=== PATIENT | male | born 1940 | race Caucasian/White ===

== ENCOUNTER 2017-05-24 08:27 | Inpatient (IN) | payer MEDICARE ==
[~2017-05-24] VITALS: Ht 177.8 cm; Wt 81.2 kg
--- NOTE | ~2017-05-24 | PN ---
PATIENT:TREY MENDEZ MEDICAL RECORD: [id number] LOCATION:[facility] ADMISSION DATE: 05/24/17 PROGRESS NOTE DATE OF SERVICE: 06/07/2017 SUBJECTIVE: No new complaint. OBJECTIVE: The patient's discharge has been delayed yet again regarding determination about eligibility for Medicaid. On exam, the patient's mood is euthymic, affect is somewhat expansive. Speech is slightly pressured and tangential. Content of thought is negative for overt psychosis. Sensorium unchanged. ASSESSMENT: No change in diagnosis. PLAN: 1. Continue current treatment plan. 2. Await determination regarding Medicaid. TRANSINT:[id number] Voice Confirmation ID: [id number] DOCUMENT ID: [id number] KIMBERLY GURROLA III, MD at 1142 CC: [id number] DICTATION DATE: 06/07/17 1217 DIP PAINTER: 06/07/17 1226 ADM IN [place] [id number] [place] [address]
--- NOTE | ~2017-05-24 | PN ---
PATIENT:TREY MENDEZ MEDICAL RECORD: [id number] LOCATION:[facility] [place] ADMISSION DATE: 05/24/17 PROGRESS NOTE DATE OF SERVICE: 06/04/2017 SUBJECTIVE: No new complaint. OBJECTIVE: The family has made arrangements for the patient to be transferred to a [place] care facility at the time of discharge. The patient is stable, tolerating medications well. On exam, mood is pleasant. Affect still slightly expansive. Speech tends to be somewhat repetitive. Content of thought is unchanged. Sensorium unchanged. ASSESSMENT: No change in diagnosis. PLAN: 1. Continue current medications. 2. Continue supportive therapy. TRANSINT:[id number] Voice Confirmation ID: [id number] DOCUMENT ID: [id number] KIMBERLY GURROLA III, MD at 2034 CC: [id number] DICTATION DATE: 06/04/17 1115 ACADEMIC SUPPORT CENTER DIRECTOR: 06/04/17 1205 ADM IN [address] [place] [address]
--- NOTE | ~2017-05-24 | PN ---
PATIENT:TREY MENDEZ MEDICAL RECORD: [id number] LOCATION:[facility] ADMISSION DATE: 05/24/17 PROGRESS NOTE DATE OF SERVICE: 05/31/2017 SUBJECTIVE: The patient's case was discussed with staff. He has no new complaint. OBJECTIVE: The patient is in good behavioral control with limited insight about his condition. He does tolerate his medicines well. ASSESSMENT: No change in diagnoses. PLAN: Brief supportive and educational interventions were made. The patient's long-term prognosis is guarded. TRANSINT:[id number] Voice Confirmation ID: [id number] DOCUMENT ID: [id number] VANDANA MEYER MD at 1355 CC: [id number] DICTATION DATE: 05/31/17 1347 WINE PASTEURIZER: 05/31/17 2129 ADM IN [place] [id number] [place] [address]
--- NOTE | ~2017-05-24 | PSY ---
PATIENT NAME:TREY MENDEZ MEDICAL RECORD: [id number] : 36 LOCATION:[facility] ADMISSION DATE: 05/24/17 ACCOUNT: [id number] PSYCHIATRIC EVALUATION DATE OF EVALUATION: 05/24/17 IDENTIFYING DATA: A 76-year-old white male admitted at the request of family for evaluation of dementia. HISTORY OF PRESENT ILLNESS: This patient had previously been evaluated by Dr. Patterson who had recommended admission for further evaluation. The patient has been showing evidently increasing signs and symptoms of dementia for some time. According to him, he moved to [place] from [place] in the relatively recent past. Exact dates are not known. The patient states that he began to have trouble when he applied for a permanent hunting and fishing license. He says "they took something and would not give it back." He then indicated that family had for some reason taken away his bank cards and were trying to "run my life." He states that there is nothing wrong with him and he is not sure how or why he came to the hospital. The patient evidently has been in relatively good health. He does not have any specific complaints upon interview. He does exhibit paranoid ideation directed toward other patients, however. He claimed that another patient was trying to make him be quiet and yet another patient was going to steal something from him. Because of worsening dementia and psychotic symptoms, the patient is now admitted. PAST MEDICAL HISTORY: Details not currently known. The patient has been in relatively good health. Initial laboratory values are unremarkable. ALLERGIES: None listed. FAMILY HISTORY: Noncontributory. SOCIAL HISTORY: The patient as mentioned had been living in [place] for a number of years. He states that he moved to [place] because the weather was better. He denies alcohol or substance abuse. He does have family involved in his care. MENTAL STATUS: On interview, the patient is pleasant. He orients well to the examiner, but is clearly confused. He does not know the name of the hospital and realizes that he has been here for a short time, but he does not know the date. Mood is slightly anxious. Affect is somewhat reserved and avoidant. Content of thought is positive for paranoid delusional ideation. Sensorium is mentioned above. Remote, intermediate, and short-term recall, all appear significantly impaired. Concentration is poor. 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 AXIS II: No diagnosis. AXIS III: No diagnosis. AXIS IV: Moderate. AXIS V: 35. PLAN: 1. The patient is admitted for further medical and psychiatric workup. 2. Diet and activities as tolerated. 3. Daily supportive therapy. TRANSINT:[id number] Voice Confirmation ID: [id number] DOCUMENT ID: [id number] ADDENDUM PAST MEDICAL HISTORY: The patient has a past medical history of hypertension, type 2 diabetes, hypothyroidism, hypercholesterolemia. MEDICATION: At the time of admission included baclofen 10 mg b.i.d., TriCor 145 mg daily, Prinivil 20 mg daily, pravastatin 40 mg at bedtime, Neurontin 300 mg t.i.d., Amaryl 2 mg daily, levothyroxine 150 mcg daily, Glucophage 850 mg t.i.d. with meals and Januvia 100 mg at breakfast. Dictation ID [id number] KIMBERLY GURROLA III, MD at 1058 CC: [id number] DICTATION DATE: 05/24/171421 BUCKSHOT SWAGE OPERATOR: 05/24/17 1436 ADM IN [facility] [address] [place] [address]
--- NOTE | ~2017-05-24 | PN ---
PATIENT:TREY MENDEZ MEDICAL RECORD: [id number] LOCATION:[facility] [place] ADMISSION DATE: 05/24/17 PROGRESS NOTE DATE OF SERVICE: 05/29/2017 SUBJECTIVE: No new complaint. OBJECTIVE: Staff report the patient is participating well. We will be getting neuropsychological testing regarding possible guardianship. On exam, mood is pleasant. Affect somewhat expansive. Speech is tangential. Content of thought is negative for overt psychosis. Sensorium is unchanged. ASSESSMENT: No change in diagnosis. PLAN: 1. Continue current medications. 2. Continue supportive therapy. TRANSINT:[id number] Voice Confirmation ID: [id number] DOCUMENT ID: [id number] KIMBERLY GURROLA III, MD at 1035 CC: [id number] DICTATION DATE: 05/29/17 1132 DYEHOUSE WORKER: 05/29/17 1232 ADM IN [place] [id number] [place] [address]
--- NOTE | ~2017-05-24 | DS ---
PATIENT:TREY MENDEZ :36 MEDICAL RECORD: [id number] DISCHARGE SUMMARY ADMISSION DATE: 05/24/17 DISCHARGE DATE: DATE OF ADMISSION: 05/24/2017. DATE OF DISCHARGE: 06/06/2017. HISTORY: A 76-year-old white male admitted at request of his family because of dementia. The patient has been previously evaluated by Dr. Juanita Monet, who had recommended further evaluation and because of worsening cognition and mild paranoid ideation, the patient was admitted. For further details, please see previously dictated history. COURSE IN THE HOSPITAL: The patient was seen in consultation by Dr. Vale. He noted the presence of recent hypothyroidism, hearing impairment, hyperlipidemia, hypertension, and type 2 diabetes. From a psychiatric standpoint, the patient was managed very conservatively. He did not require medications for agitation. He responded well to the inpatient environment, close contact was maintained with family regarding follow up and the patient will be admitted for a rehab stay at [facility] prior to further evaluation. Neuropsychological testing did confirm the presence of dementia. FINAL DIAGNOSES: AXIS I: Alzheimer dementia -- improving. AXIS II: No diagnosis. AXIS III: Hypertension, type 2 diabetes, hypothyroidism, hyperlipidemia, osteoarthritis. AXIS IV: Moderate. AXIS V: 40. PLAN: 1. The patient is discharged on current medications. 2. Diet and activities as tolerated. 3. Follow up through assisted physician. TRANSINT:[id number] Voice Confirmation ID: [id number] DOCUMENT ID: [id number] KIMBERLY GURROLA III, MD at 4437 CC: [id number] DICTATION DATE: 06/06/17 1213 DIESEL ENGINE II PIPE FITTER: 06/06/17 1317 ADM IN [facility] [address] [place] [address]
--- NOTE | ~2017-05-24 | PN ---
PATIENT:TREY MENDEZ MEDICAL RECORD: [id number] LOCATION:[facility] ADMISSION DATE: 05/24/17 PROGRESS NOTE DATE OF SERVICE: 05/27/2017 SUBJECTIVE: No new complaint. OBJECTIVE: Additional history obtained by staff indicates that the patient had previously scored 13/30 on mental status exam. The patient has been fairly cooperative on the unit. He occasionally gets irritable. The patient's family is interested in placement. On exam, mood is pleasant and euthymic. Affect is appropriate. Speech is somewhat tangential. Content of thought is negative for overt psychosis. Sensorium unchanged. ASSESSMENT: No change in diagnosis. PLAN: 1. Continue all current medications. 2. Continue supportive therapy. TRANSINT:[id number] Voice Confirmation ID: [id number] DOCUMENT ID: [id number] KIMBERLY GURROLA III, MD at 0919 CC: [id number] DICTATION DATE: 05/27/17 1142 SCORER HELPER: 05/27/17 1202 ADM IN [place] [address] [place] [address]
--- NOTE | ~2017-05-24 | PN ---
PATIENT:TREY MENDEZ MEDICAL RECORD: [id number] LOCATION:[facility] ADMISSION DATE: 05/24/17 PROGRESS NOTE DATE OF SERVICE: 05/28/2017 SUBJECTIVE: No new complaint. OBJECTIVE: The patient has been pleasant. He is restless and remains confused, but otherwise no problems. On exam, mood is pleasant and euthymic. Affect slightly expansive. Speech is tangential, somewhat rambling. Content of thought is unchanged. Sensorium unchanged. ASSESSMENT: No change in diagnosis. PLAN: 1. Continue all current medications. 2. Continue supportive therapy. TRANSINT:[id number] Voice Confirmation ID: [id number] DOCUMENT ID: [id number] KIMBERLY GURROLA III, MD at 1056 CC: [id number] DICTATION DATE: 05/28/17 1016 SHIRRING MACHINE OPERATOR AUTOMATIC: 05/28/17 [address] [facility] [address] [place] [id number]
--- NOTE | ~2017-05-24 | PN ---
PATIENT:TREY MENDEZ MEDICAL RECORD: [id number] LOCATION:[facility] ADMISSION DATE: 05/24/17 PROGRESS NOTE DATE OF SERVICE: 06/03/2017 SUBJECTIVE: No new complaint. OBJECTIVE: The patient has continued to do well, Lisette assessment has come back. The patient is approved. We will likely discharge later in the week. On exam, mood is pleasant. Affect is genial. Speech is somewhat tangential and at times circular. Content of thought is negative for overt psychosis. Sensorium shows no change. ASSESSMENT: No change in diagnoses. PLAN: 1. Maintain current medication. 2. Continue supportive therapy. TRANSINT:[id number] Voice Confirmation ID: [id number] DOCUMENT ID: [id number] KIMBERLY GURROLA III, MD at 1903 CC: [id number] DICTATION DATE: 06/03/17 09 INFORMATION SYSTEMS AUDIT MANAGER: 06/03/17 1136 ADM IN [place] [id number] [place] [id number]
--- NOTE | ~2017-05-24 | DS ---
PATIENT:TREY MENDEZ :36 MEDICAL RECORD: [id number] DISCHARGE SUMMARY ADMISSION DATE: 05/24/17 DISCHARGE DATE: 06/10/17 ADDENDUM Original discharge summary was dictated on 06/06/2017. The addendum is the patient's discharge was delayed due to difficulty with transportation. The patient will be discharged as of today. No further changes. TRANSINT:[id number] Voice Confirmation ID: [id number] DOCUMENT ID: [id number] KIMBERLY GURROLA III, MD at 1105 CC: [id number] DICTATION DATE: 06/10/17 1201 VA UNDERWRITER: 06/10/17 1216 DIS IN 06/10/17 [place] [address] [place] [address]
--- NOTE | ~2017-05-24 | PN ---
PATIENT:TREY MENDEZ MEDICAL RECORD: [id number] LOCATION:[facility] ADMISSION DATE: 05/24/17 PROGRESS NOTE DATE OF SERVICE: 05/25/2017 SUBJECTIVE: No new complaint. OBJECTIVE: The patient is somewhat intrusive, but he is taking medication as prescribed. Mood is slightly irritable. Affect is for the most part well controlled. Speech is rambling and verbose. Content of thought is negative for overt psychosis with the exception of some generalized paranoid ideation. Sensorium shows no change. ASSESSMENT: No change in diagnosis. PLAN: 1. Maintain current medication. 2. Continue supportive therapy. TRANSINT:[id number] Voice Confirmation ID: [id number] DOCUMENT ID: [id number] KIMBERLY GURROLA III, MD at 1124 CC: [id number] DICTATION DATE: 05/25/17 1153 SOW FARM MANAGER: 05/25/17 1206 ADM IN [place] [id number] [place] [address]
--- NOTE | ~2017-05-24 | PN ---
PATIENT:TREY MENDEZ MEDICAL RECORD: [id number] LOCATION:[facility] ADMISSION DATE: 05/24/17 PROGRESS NOTE DATE OF SERVICE: 06/05/2017 SUBJECTIVE: No new complaint. OBJECTIVE: The family has agreed on transfer to [facility] for rehabilitation. We are waiting approval. On exam, mood pleasant. Affect is bland. Speech is tangential and repetitive. Content of thought is negative for overt psychosis. Sensorium unchanged. ASSESSMENT: No change in diagnosis. PLAN: 1. Continue current medications. 2. Continue supportive therapy. TRANSINT:[id number] Voice Confirmation ID: [id number] DOCUMENT ID: [id number] KIMBERLY GURROLA III, MD at 2034 CC: [id number] DICTATION DATE: 06/05/17 1016 THREAD CUTTER TENDER: 06/05/17 1101 ADM IN [place] [id number] [place] [address]
--- NOTE | ~2017-05-24 | PN ---
PATIENT:TREY MENDEZ MEDICAL RECORD: [id number] LOCATION:[facility] ADMISSION DATE: 05/24/17 PROGRESS NOTE DATE OF SERVICE: 05/30/2017 SUBJECTIVE: No new complaint. OBJECTIVE: The patient has been doing well. He is cooperative with staff. He has occasional irritability. On exam, mood euthymic. Affect is bland. Speech is tangential. Content of thought exhibits grandiosity at times. Sensorium is unchanged. ASSESSMENT: No change in diagnoses. PLAN: 1. Maintain current medication. 2. Continue supportive therapy. TRANSINT:[id number] Voice Confirmation ID: [id number] DOCUMENT ID: [id number] KIMBERLY GURROLA III, MD at 0816 CC: [id number] DICTATION DATE: 05/30/17 112 SUPERVISOR LONG GOODS: 05/30/17 1154 ADM IN [facility] [address] [place] [address]
--- NOTE | ~2017-05-24 | PN ---
PATIENT:TREY MENDEZ MEDICAL RECORD: [id number] LOCATION:[facility] [place] ADMISSION DATE: 05/24/17 PROGRESS NOTE DATE OF SERVICE: 06/01/2017 SUBJECTIVE: The patient's case was discussed with staff. He has no new complaint. OBJECTIVE: The patient is in good behavioral control with limited insight about his condition. He tolerates his medicines well. ASSESSMENT: No change in diagnoses. PLAN: Brief supportive and educational interventions were made. If this level of improvement is maintained, I anticipate he can be transitioned out of the hospital soon. TRANSINT:[id number] Voice Confirmation ID: [id number] DOCUMENT ID: [id number] VANDANA MEYER MD at 1355 CC: [id number] DICTATION DATE: 06/01/17 0838 BLASTING CAP ASSEMBLER: 06/01/17 1204 ADM IN [place] [id number] [place] [id number]
[2017-05-24 09:12] LABS: BASOPHILS 0.4 % (0-2); EOSINOPHILS 2.8 % (0-7); HEMATOCRIT 36.9 % (42.0-54.0); HEMOGLOBIN 12.3 g/dL (13.5-17.5); IMMATURE GRANULOCYTES 0.4 % (0-5); LYMPHOCYTES 20.7 % (15-50); MCH 28.5 pg (26.0-34.0); MCHC 33.3 g/dL (31.0-37.0); MCV 85.6 fL (80.0-100.0); MEAN PLATELET VOLUME 9.4 fL (7.4-10.4); MONOCYTES 7.4 % (2-11); NEUTROPHILS 68.3 % (40-80); PLATELET COUNT 250 10x3/uL (130-400); RBC 4.31 10x6/uL (4.20-6.10); RDW 14.2 % (11.5-14.5); WBC 7.5 10x3/uL (4.8-10.8)
[2017-05-24 09:25] LABS: ALBUMIN 3.5 g/dL (3.4-5.0); ANION GAP 14.3 mmol/L (8-16); BILIRUBIN - TOTAL 0.19 mg/dL (0.2-1.3); CARBON DIOXIDE 22.4 mmol/L (21.0-32.0); CREATININE - SERUM 1.1 mg/dL (0.6-1.3); POTASSIUM - SERUM 3.7 mmol/L (3.5-5.1); PROTEIN - SERUM 6.7 g/dL (6.4-8.2)
[2017-05-24 09:41] LABS: APPEARANCE CLEAR (CLEAR); BILIRUBIN NEGATIVE (NEGATIVE); COLOR YELLOW (YELLOW); GLUCOSE NEGATIVE (NEGATIVE); KETONE NEGATIVE (NEGATIVE); NITRITE NEGATIVE (NEGATIVE); PROTEIN NEGATIVE (NEGATIVE); SPECIFIC GRAVITY 1.015 (1.005-1.020); UROBILINOGEN NORMAL (NORMAL)
[2017-05-24 09:46] LABS: UDS - AMPHET NEGATIVE QUAL (NEGATIVE); UDS - BARB NEGATIVE QUAL (NEGATIVE); UDS - BENZO NEGATIVE QUAL (NEGATIVE); UDS - COCAINE NEGATIVE QUAL (NEGATIVE); UDS - OPIATE NEGATIVE QUAL (NEGATIVE); UDS - PCP NEGATIVE QUAL (NEGATIVE); UDS - THC NEGATIVE QUAL (NEGATIVE)
[2017-05-24 13:11] LABS: CHOL - HDL RATIO 3.9 ratio (2.3-4.9); LDL-HDL RATIO 2.3 ratio (1.5-3.5); THYROID STIMULATING HORMONE 2.03 uIU/mL (0.36-3.74)
[2017-05-24] MEDS ORDERED: BACLOFEN10 MG PO (15:16)
[2017-05-24] MEDS ORDERED: JANUVIA100 MG PO (15:17)
[2017-05-24] MEDS ORDERED: PRINIVIL20 MG PO (15:17)
[2017-05-24] MEDS ORDERED: GLUCOPHAGE850 MG PO (15:18)
[2017-05-24] MEDS ORDERED: GLIMEPIRIDE2 MG PO (15:19)
[2017-05-24] MEDS ORDERED: LEVOXYL150 MCG PO (15:20)
[2017-05-24] MEDS ORDERED: TRICOR145 MG PO (15:21)
[2017-05-24] MEDS ORDERED: NEURONTIN 300300 MG PO (15:22)
[2017-05-24] MEDS ORDERED: PRAVACHOL40 MG PO (15:22)
[2017-05-24 15:43] VITALS: BP 137/73; BMI 25.8
[2017-05-24 20:10] VITALS: BP 132/82
[2017-05-25 04:17] LABS: RAPID PLASMA REAGIN Non Reactive (Non Reactive)
[2017-05-25 07:00] VITALS: BP 115/61
[2017-05-25 08:16] LABS: FOLATE (FOLIC ACID) - SERUM 12.3 ng/mL (>3.0)
[2017-05-25 19:57] VITALS: BP 119/67
[2017-05-25 21:06] LABS: VITAMIN D 25 HYDROXY 17.3 ng/mL (30.0-100.0)
[2017-05-26 07:52] VITALS: BP 115/65
[2017-05-26 19:53] VITALS: BP 141/63
[2017-05-27 07:00] VITALS: BP 93/52
[2017-05-27 10:28] VITALS: BMI 25.7
[2017-05-28 07:00] VITALS: BP 103/64
[2017-05-28 11:04] VITALS: BMI 25.6
[2017-05-28 20:08] VITALS: BP 104/54
[2017-05-29 10:47] VITALS: BP 104/62
[2017-05-29 20:06] VITALS: BP 141/065
[2017-05-30 09:31] VITALS: BP 136/58
[2017-05-30 19:44] VITALS: BP 129/63
[2017-05-31 09:32] VITALS: BP 115/62
[2017-05-31 20:22] VITALS: BP 117/56
[2017-06-01 09:57] VITALS: BP 123/65
[2017-06-01 20:01] VITALS: BP 125/69
[2017-06-02 07:00] VITALS: BP 108/61
[2017-06-02 19:30] VITALS: BP 112/69
[2017-06-03 07:00] VITALS: BP 105/56
[2017-06-03 19:49] VITALS: BP 114/55
[2017-06-04 11:05] VITALS: BP 119/60
[2017-06-04 19:42] VITALS: BP 141/74
[2017-06-04 22:03] VITALS: Ht 177.8 cm; Wt 81.2 kg
[2017-06-05 09:52] VITALS: BP 131/73
[2017-06-05 20:30] VITALS: BP 105/54
[2017-06-06 10:33] VITALS: BP 104/56
[2017-06-06] MEDS ORDERED: VESICARE5 MG PO (11:30)
[2017-06-06] MEDS ORDERED: VITAMIN D5000 UNIT PO (11:30)
[2017-06-06] MEDS ORDERED: ARICEPT5 MG PO (12:15)
[2017-06-06 21:22] VITALS: BP 133/64
[2017-06-07 09:20] VITALS: BP 116/64
[2017-06-07 20:52] VITALS: BP 142/52
[2017-06-08 10:50] VITALS: BP 124/66
[2017-06-08 20:33] VITALS: BP 126/63
[2017-06-09 07:00] VITALS: BP 113/64
[2017-06-09 19:30] VITALS: BP 118/66
[2017-06-10 07:00] VITALS: BP 138/66
== END 2017-06-10 16:40 | disposition home or self-care (01) | DRG 57 ==
LOC: D.ER 08:27 → D.PSYCH 10:40
PROVIDERS: Emergency Medicine; Psychiatry & Neurology Psychiatry
DX: G30.9 Alzheimer's disease, unspecified (principal); F02.81 Dementia in other diseases classified elsewhere, unspecified severity, with behavioral disturbance; E03.9 Hypothyroidism, unspecified; H91.90 Unspecified hearing loss, unspecified ear; E78.5 Hyperlipidemia, unspecified; I10 Essential (primary) hypertension; R32 Unspecified urinary incontinence; M19.90 Unspecified osteoarthritis, unspecified site; F32.9 Major depressive disorder, single episode, unspecified; E55.9 Vitamin D deficiency, unspecified; E53.8 Deficiency of other specified B group vitamins; L85.9 Epidermal thickening, unspecified; E11.43 Type 2 diabetes mellitus with diabetic autonomic (poly)neuropathy; Z87.891 Personal history of nicotine dependence